=== PATIENT | female | born 2005 | race Caucasian/White ===

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

== ENCOUNTER 2025-04-20 01:37 | Emergency (ER) | payer BC ==
[2025-04-20 01:49] VITALS: BP 127/101; PULSE 102
[2025-04-20] MEDS ORDERED: Sodium Chloride 0.9% 10 ML Syringe FLUSH PRN (02:04)
[2025-04-20] MEDS: Lactated Ringers 1,000 ML IV ONE (02:15)
[2025-04-20] MEDS: Ondansetron 4 MG/2 ML SDV IVPUSH ONE (02:15)
[2025-04-20] MEDS: Simethicone 80 MG Tab.Chew PO ONE (02:19)
[2025-04-20 02:28] LABS: BASOPHILS PERCENT AUTO 0.1 % (0.0-1.0); EOSINOPHILS PERCENT AUTO 0.3 % (1.0-3.0); HEMATOCRIT 42.3 % (37.0-47.0); HEMOGLOBIN 14.5 g/dL (12.0-16.0); LYMPHOCYTES PERCENT AUTO 3.9 % (20.5-50.1); MEAN CORPUSCULAR HGB CONC 34.3 g/dL (33.0-35.0); MEAN CORPUSCULAR VOLUME 90.4 fL (80-100); MONOCYTES PERCENT AUTO 6.8 % (2-8); NEUTROPHILS PERCENT AUTO 88.9 % (42.2-75.2); PLATELET COUNT,PLT 241 10^3/uL (150-450); RED BLOOD CELL COUNT 4.68 10^6/uL (4.2-5.4); WHITE BLOOD CELL COUNT,WBC 14.2 10^3/uL (5.0-10.0)
[2025-04-20 03:03] LABS: ANION GAP 11.4 mEq/L (7-13); POTASSIUM,K 3.4 mmol/L (3.5-4.5)
[2025-04-20 03:04] LABS: CREATININE 0.53 mg/dL (0.51-1.19)
[2025-04-20 03:05] LABS: EST CRCL DRUG DOSING (CG) 151.09 mL/min
[2025-04-20] MEDS: Take Home: Ondansetron 4 MG Tab.DIS, 5 Tab Pack PO ONE (04:21)
[2025-04-22 11:09] LABS: CALCIUM 1.04 mmol/l (1.15-1.33)
== END 2025-04-20 04:29 | disposition home or self-care (01) ==
LOC: DL.ED 01:37
DX: K90.0 Celiac disease (principal); Z88.0 Allergy status to penicillin; Z79.899 Other long term (current) drug therapy
CPT/HCPCS: 36415; 80053; 85025; A9270; J2405; J7120; Q0162; 80048; 96361; 96374; 99284; 99284-25